=== PATIENT | female | born 1990 | race African-American/Black ===

== ENCOUNTER 2016-05-24 10:02 | Emergency (ER) | payer SELFPAY ==
[~2016-05-24] VITALS: Ht 157.5 cm; Wt 93.1 kg
[~2016-05-24 10:02] MED LIST: BACT800T5 PO; CEPH500C3 PO; IBUP800T23 PO
[2016-05-24 10:07] VITALS: BP 154/78; PULSE 84; RESP 16; TEMP 98.1; O2SAT 99
--- NOTE | 2016-05-24 10:41 | PD ---
HPI Chief Complaint: Lump, Cyst, Hernia Time Seen by Provider: 10:41 Travel History International Travel<30 days: No Contact w/Intl Traveler<30days: No Traveled to known affect area: No History of Present Illness HPI 25-year-old female with complaint of an abscess to her right armpit 4 days. History of abscesses to bilateral armpits. Denies fever, chills, nausea, vomiting. Denies paresthesias, loss of sensation, decreased range of motion, decreased strength to affected extremity. Has tried opening it up and draining at this morning but couldn't secondary to pain. Has tried warm compresses with no relief. Has not taken any medications or tried any other treatments to alleviate her symptoms. No known allergies. No other modifying factors or associated signs and symptoms. PFSH Past Medical History Hx Anticoagulant Therapy: No Cardiovascular Problems: No Chemotherapy: No Cerebrovascular Accident: No Diabetes: No Respiratory: No ?: Not LMP: MAY 2016 : 1 Para: 0 : 1 Social History Alcohol Use: Yes (SOCIAL) Tobacco Use: Yes (BLACK AND MILD 3-4 WEEKLY) Substance Use: No Allergies-Medications (Allergen,Severity, Reaction): Coded Allergies: No Known Allergies (Verified , 11/28/14) Reported Meds & Prescriptions Reported Meds & Active Scripts Active Ibuprofen 800 Mg Tab 800 Mg PO Q6HR PRN Bactrim DS (Sulfamethoxazole-Trimethoprim) 800-160 Mg Tab 1 Tab PO BID 10 Days Keflex (Cephalexin) 500 Mg Cap 500 Mg PO Q6H 10 Days Review of Systems Except as stated in HPI: all other systems reviewed are Neg Physical Exam Narrative GENERAL: Well-nourished, well-developed patient, in no acute distress; afebrile , nontoxic-appearing SKIN: There is an indurated area in the right arm. Which measures about 3 cm in diameter. It is fluctuant but there is no pointing or drainage. There is a zone of inflammation around it but no lymphangitis. HEAD: Atraumatic. Normocephalic. EYES: Pupils equal and round. No scleral icterus. No injection or drainage. ENT: Mucosa pink and moist. Airway patent. NECK: Trachea midline. CARDIOVASCULAR: Regular rate. RESPIRATORY: No accessory muscle use. GASTROINTESTINAL: Rounded. \MUSCULOSKELETAL: No obvious deformities. No clubbing. No cyanosis. No edema. NEUROLOGICAL: Awake and alert. Oriented 3. No obvious cranial nerve deficits. Motor grossly within normal limits. Normal speech. PSYCHIATRIC: Appropriate mood and affect; insight and judgment normal. Data Data Last Documented VS Vital Signs Date Time Temp Pulse Resp B/P Pulse Ox O2 Delivery O2 Flow Rate FiO2 05/24/16 10:07 98.1 84 16 154/78 99 Orders Wound Culture And Gram Stain (05/24/16 10:46) Ketorolac Inj (Toradol Inj) (05/24/16 11:00) [facility] Medical Decision Making Medical Screen Exam Complete: Yes Emergency Medical Condition: Yes Medical Record Reviewed: Yes Differential Diagnosis Abscess, folliculitis, hidradenitis Narrative Course 25-year-old female with an abscess to her right axilla. Patient is afebrile and nontoxic-appearing. See my procedure note for incision and drainage. Wound culture pending. Toradol administered in the ER. Keflex, Bactrim, ibuprofen prescribed for home. Patient is medically cleared and stable for discharge. Discussed reasons to return to the emergency department. Instructed patient to follow up with primary care provider. Patient agrees with treatment plan. The patients vital signs are stable and the patient is stable for outpatient follow-up and treatment. Patient discharged home, stable and in no acute distress. Procedures Procedure Narrative INCISION AND DRAINAGE OF ABSCESS: The area was prepped and was sterilely draped. Ethyl chloride was used to anesthetize the area. The area was properly anesthetized. A number 11 scalpel was used to make a 0.5-cm incision across the area of the abscess. Cultures were obtained. The abscess was drained an irrigated with normal saline. Sterile dressing applied. Diagnosis Primary Impression: Abscess of right axilla Referrals: Primary Care Physician Patient Instructions: Abscess (ED), Abscess Follow-up (ED), Abscess Incision and Drainage (ED), General Instructions Departure Forms: Tests/Procedures, Work Release Enter return to work date: May 25, 2016 Additional Instructions: Complete full course of antibiotics Warm compresses to the affected area Keep area clean and dry Ibuprofen or Tylenol as directed and as needed for pain and inflammation Follow-up with primary care provider Return to emergency department immediately with worsening of symptoms Med/Other Pt SpecificInfo: Prescription(s) given Scripts Ibuprofen 800 Mg [id number] Mg PO Q6HR PRN (PAIN) #30 TAB Ref 0 Prov:Erica Cowan 05/24/16 Sulfamethoxazole-Trimethoprim (Bactrim DS)800-160 Mg Tab1 Tab PO BID 10 Days Ref 0 Prov:Erica Cowan 05/24/16 Cephalexin (Keflex)500 Mg [id number] Mg PO Q6H 10 Days Ref 0 Prov:Erica Cowan 05/24/16 Disposition: 01 DISCHARGE HOME Condition: Stable Erica Cowan May 24, 2016 10:41
[2016-05-24] MEDS ORDERED: CEPH-460 PO (10:49)
[2016-05-24] MEDS ORDERED: IBUP800T23 PO (10:49)
[2016-05-24] MEDS ORDERED: BACT800T5 PO (10:49)
[2016-05-24] MEDS ORDERED: KETOROLAC TROMETHAMINE 60 MG/2 ML (IM) VIAL IM ONE (11:00)
== END 2016-05-24 12:22 | disposition home or self-care (01) ==
LOC: NED 10:02 → NEPB 12:22
DX: L02.411 Cutaneous abscess of right axilla (principal); B95.61 Methicillin susceptible Staphylococcus aureus infection as the cause of diseases classified elsewhere; Z72.0 Tobacco use
CPT/HCPCS: 10060; 86403; 87070; 87186; 96372; 99283; J1885; 87205

== ENCOUNTER 2016-08-02 13:36 | Emergency (ER) | payer SELFPAY ==
[~2016-08-02] VITALS: Ht 157.5 cm; Wt 93.0 kg
[~2016-08-02 13:36] MED LIST changes: +CEPH-460 PO; -CEPH500C3 PO
[2016-08-02 13:38] VITALS: BP 143/64; PULSE 74; RESP 15; TEMP 98.2; O2SAT 98
--- NOTE | 2016-08-02 13:46 | PD ---
Physical Exam Date Seen by Provider: Aug 02, 2016 Time Seen by Provider: 13:44 Narrative 25 y/o female presents with abscess under right axilla for the past week. No fever, chills, or drainage. Pain and swelling worsening. V/S stable. Med bed placement pending. Data Data Last Documented VS Vital Signs Date Time Temp Pulse Resp B/P Pulse Ox O2 Delivery O2 Flow Rate FiO2 08/02/16 13:38 98.2 74 15 143/64 98 MDM Medical Record Reviewed: Yes Supervised Visit with RACHAEL: Yes Condition: Stable Percy Garland Aug 02, 2016 13:46
--- NOTE | 2016-08-02 14:34 | PD ---
HPI . right axilla possible abscess Chief Complaint: Skin Problem Time Seen by Provider: 14:31 Travel History International Travel<30 days: No Contact w/Intl Traveler<30days: No Traveled to known affect area: No History of Present Illness HPI 25-year-old female with recurrent abscesses here with complaint of a possible right axilla abscess that started approximately 1 week ago. She had something similar in May and had incision and drainage along with antibiotics. She says that one went away and this is a new one. She admits to pain in the area. She does admit to shaving with razors. She denies any fever or chills and has no other complaints. She does not have a primary care provider. PFSH Past Medical History Hx Anticoagulant Therapy: No Cardiovascular Problems: No Chemotherapy: No Cerebrovascular Accident: No Diabetes: No Respiratory: No ?: Not LMP: 07/04/16 : 1 Para: 0 : 1 Social History Alcohol Use: Yes (SOCIAL) Tobacco Use: Yes (BLACK AND MILD 3-4 WEEKLY) Substance Use: No Allergies-Medications (Allergen,Severity, Reaction): Coded Allergies: No Known Allergies (Verified , 08/02/16) Reported Meds & Prescriptions Reported Meds & Active Scripts Active Ibuprofen 800 Mg Tab 800 Mg PO Q6HR PRN Bactrim DS (Sulfamethoxazole-Trimethoprim) 800-160 Mg Tab 1 Tab PO BID 10 Days Keflex (Cephalexin) 500 Mg Cap 500 Mg PO Q6H 10 Days Review of Systems General / Constitutional: No: Fever Eyes: No: Visual changes HENT: No: Headaches Cardiovascular: No: Chest Pain or Discomfort Respiratory: No: Shortness of Breath Gastrointestinal: No: Abdominal Pain Genitourinary: No: Dysuria Musculoskeletal: No: Pain Skin: Positive Other (right axilla swelling), No Rash Neurologic: No: Weakness Psychiatric: No: Depression Endocrine: No: Polydipsia Hematologic/Lymphatic: No: Easy Bruising Physical Exam Narrative GENERAL: AAO x 3, no acute distress, Well-nourished, well-developed patient. SKIN: Warm and dry. No visible rashes or bruising. Small 1 cm area of induration with some superficial swelling in the right axilla. No fluctuance. There is no definitive fluid collection or abscess. No erythema. No significant temperature variation. HEAD: Normocephalic and atraumatic. EYES: No scleral icterus. No injection or drainage. ENT: No nasal drainage noted. Mucous membranes pink. Airway patent. NECK: Supple, trachea midline. No JVD. CARDIOVASCULAR: Regular rate and rhythm without murmurs, gallops, or rubs. RESPIRATORY: Breath sounds equal bilaterally. No accessory muscle use. No rhonchi or rales. GASTROINTESTINAL: Visual inspection is normal EXTREMITIES: No cyanosis or edema. BACK: Nontender without obvious deformity. No CVA tenderness. PSYCH: AAO x 3, normal affect. Data Data Last Documented VS Vital Signs Date Time Temp Pulse Resp B/P Pulse Ox O2 Delivery O2 Flow Rate FiO2 08/02/16 13:38 98.2 74 15 143/64 98 MDM Medical Decision Making Medical Screen Exam Complete: Yes Emergency Medical Condition: Yes Medical Record Reviewed: Yes Differential Diagnosis folliculitis, cellulitis, less likely abscess Narrative Course 25-year-old female with recurrent abscesses here with complaint of a possible right axilla abscess that started approximately 1 week ago. She had something similar in May and had incision and drainage along with antibiotics. She says that one went away and this is a new one. She admits to pain in the area. She does admit to shaving with razors. She denies any fever or chills and has no other complaints. She does not have a primary care provider. Patient seen and examined. She appears to have a very mild folliculitis and cellulitis. There is no definitive abscess formation. There is nothing for me to drain. I've explained this to the patient and she seems a little bit upset. I've advised her that she will need to establish with a primary care provider as she could possibly have hidradenitis suppurativa. At this point I will go ahead and give her antibiotics to cover this mild infection. Ibuprofen for pain. I explained to her that this is related to shaving and she should find an alternative option. In the meantime she can try to use warm compress to see if the area forms to head. If it does, she can return for drainage. Diagnosis Primary Impression: Folliculitis Additional Impression: Cellulitis of axilla, right Patient Instructions: Cellulitis (ED), Folliculitis (ED), General Instructions Additional Instructions: Molt for worsening signs of infection which include fever, increased redness , increased warmth, purulent drainage, increased swelling or streaking. If any of these develop, please go to the nearest emergency room. You can try to use warm compresses to the area to see if a head develops. If it does, you can come back to the emergency department to have it drained. Please return to emergency department if your symptoms return or worsen. Follow up with your primary care provider. Take medications as prescribed. Use Tylenol or Motrin as needed for pain. Med/Other Pt SpecificInfo: Prescription(s) given Scripts Ibuprofen 800 Mg [id number] Mg PO Q6HR PRN (PAIN) #30 TAB Ref 0 Prov:Franklin Vanessa MD 08/02/16 Sulfamethoxazole-Trimethoprim (Bactrim DS)800-160 Mg Tab1 Tab PO BID 10 Days Ref 0 Prov:Franklin Vanessa MD 08/02/16 Cephalexin (Keflex)500 Mg [id number] Mg PO Q6H 10 Days Ref 0 Prov:Franklin Vanessa MD 08/02/16 Disposition: 01 DISCHARGE HOME Condition: Stable Betina Nair Aug 02, 2016 14:34
[2016-08-02] MEDS ORDERED: IBUP800T23 PO (14:35)
[2016-08-02] MEDS ORDERED: CEPH-460 PO (14:35)
[2016-08-02] MEDS ORDERED: BACT800T5 PO (14:35)
== END 2016-08-02 14:42 | disposition home or self-care (01) ==
LOC: NEPK 13:36
DX: L73.9 Follicular disorder, unspecified (principal); L03.111 Cellulitis of right axilla
CPT/HCPCS: 99283

== ENCOUNTER 2016-08-05 21:10 | Emergency (ER) | payer SELFPAY ==
[~2016-08-05] VITALS: Ht 157.5 cm; Wt 94.1 kg
[2016-08-05 21:21] VITALS: BP 145/99; PULSE 95; RESP 18; TEMP 100; O2SAT 99
[2016-08-05 21:35] VITALS: BP 145/99; PULSE 95; RESP 18; TEMP 100; O2SAT 99
[2016-08-05] MEDS ORDERED: LIDOCAINE 1%/EPINEPHrine 1:100,000 SOLN 20 ML VIAL INFIL ONE (22:00)
--- NOTE | 2016-08-05 22:09 | PD ---
HPI Chief Complaint: Skin Problem Time Seen by Provider: 21:48 Travel History International Travel<30 days: No Contact w/Intl Traveler<30days: No Traveled to known affect area: No History of Present Illness HPI The patient is a 25-year-old female with a history of recurrent hidradenitis suppurativa who comes in because she wants her abscess "lanced". She states she went to the [facility] 3 days ago but they would not drain it. She states that's the only way it gets better. They gave her prescriptions for Septra DS and doxycycline but she did not fill either prescription. PFSH Past Medical History Hx Anticoagulant Therapy: No Cardiovascular Problems: No Chemotherapy: No Cerebrovascular Accident: No Diabetes: No Respiratory: No Immunizations Current: Yes Tetanus Vaccination: < 5 Years Influenza Vaccination: Yes ?: Not LMP: 08-03-17 : 1 Para: 0 : 1 Social History Alcohol Use: No Tobacco Use: Yes (black and milds 2 a day) Substance Use: No Allergies-Medications (Allergen,Severity, Reaction): Coded Allergies: No Known Allergies (Verified , 08/05/16) Reported Meds & Prescriptions Reported Meds & Active Scripts Active Review of Systems Except as stated in HPI: all other systems reviewed are Neg Physical Exam Narrative GENERAL: Well-nourished, well-developed patient in moderate apparent distress with her hidradenitis suppurativa on the right. Her vital signs show blood pressure 145/99 with temperature 100.0 and heart rate of 95 and respirations 18 and oximetry 99%. SKIN: Focused skin assessment warm/dry. There is a hidradenitis suppurativa area of induration and what appears to be fluctuance a 4 x 3 cm area. At least one old scar from previous drainage is present on this axilla. HEAD: Normocephalic. EYES: No scleral icterus. No injection or drainage. NECK: Supple, trachea midline. No JVD or lymphadenopathy. CARDIOVASCULAR: Regular rate and rhythm without murmurs, gallops, or rubs. RESPIRATORY: Breath sounds equal bilaterally. No accessory muscle use. GASTROINTESTINAL: Abdomen soft, non-tender, nondistended. MUSCULOSKELETAL: No cyanosis, or edema. BACK: Nontender without obvious deformity. No CVA tenderness. Data Data Last Documented VS Vital Signs Date Time Temp Pulse Resp B/P Pulse Ox O2 Delivery O2 Flow Rate FiO2 08/05/16 21:35 100.0 95 18 145/99 99 MDM Medical Decision Making Medical Screen Exam Complete: Yes Emergency Medical Condition: Yes Medical Record Reviewed: Yes Differential Diagnosis Hidradenitis suppurativa, noncompliance to medications, non-hidradenitis abscess , loculated areas of sore glands Narrative Course The patient has hidradenitis suppurativa. Only a small amount of pus was recovered after incision and drainage. Procedures Procedure Narrative The area was prepped with Betadine. Under sterile technique a field block was done with lidocaine with epinephrine. A 1-1/2 cm incision was made. Only a small amount of pus was recovered, most of the area of swelling appears to be retained an enlarged sweat glands. Diagnosis Primary Impression: Hidradenitis suppurativa Additional Impressions: Cellulitis of axilla, right Encounter for incision and drainage procedure Additional Instructions: As we discussed, you need to get your antibiotics prescriptions filled. Both antibiotics are taken twice daily. Follow-up with your primary care physician about this. Med/Other Pt SpecificInfo: No Change to Meds Disposition: 01 DISCHARGE HOME Condition: Stable Yanick Silva MD August 05, 2016 22:09
[2016-08-05] MEDS ORDERED: SULFAMETHOXAZOLE-TRIMETHOPRIM DS 800-160 MG TAB PO ONE (22:15)
[2016-08-05] MEDS ORDERED: DOXYCYCLINE HYCLATE 100 MG CAP PO ONE (22:15)
[2016-08-05 22:17] VITALS: BP 140/96; TEMP 99.6
== END 2016-08-05 22:37 | disposition home or self-care (01) ==
LOC: PHED 21:10
DX: L03.111 Cellulitis of right axilla (principal); L73.2 Hidradenitis suppurativa; F17.290 Nicotine dependence, other tobacco product, uncomplicated
CPT/HCPCS: 10060

== ENCOUNTER 2016-08-10 06:07 | Emergency (ER) | payer SELFPAY ==
[2016-08-10 06:08] VITALS: BP 177/94; PULSE 134; RESP 22; TEMP 99.8; O2SAT 98
[2016-08-10 06:40] VITALS: BP 141/97; PULSE 112; RESP 18; O2SAT 98
[2016-08-10] MEDS ORDERED: CEPH-460 PO (06:40)
[2016-08-10] MEDS ORDERED: BACT800T5 PO (06:40)
[2016-08-10] MEDS ORDERED: LIDOCAINE HCL 1% 50 ML VIAL INFIL ONE (07:15)
[2016-08-10] MEDS ORDERED: MORPHINE SULFATE 8 MG/ML INJ IV PUSH ONE (07:15)
[2016-08-10 07:20] VITALS: BP 135/87; PULSE 96; RESP 16; O2SAT 99
--- NOTE | 2016-08-10 07:28 | PD ---
HPI Chief Complaint: Pain: Acute or Chronic Time Seen by Provider: 07:01 Travel History International Travel<30 days: No Contact w/Intl Traveler<30days: No Traveled to known affect area: No History of Present Illness HPI 25yo F with PMH of recurrent right axilla abscess presents to the ED with c/o worsening pain the right axilla. Pt was seen here 5 days ago and had I&D but pt states only blood came out. Pt states she has been compliant with antibiotics but it is larger. Pt has had this at least once a month for a few years and usually it drains on its own or she comes to get it drained. +Fever at home. Denies any chest pain, sob, n/v, abdominal pain, weakness or numbness. PFSH Past Medical History Medical History: Denies Significant Hx Hx Anticoagulant Therapy: No Cardiovascular Problems: No Chemotherapy: No Cerebrovascular Accident: No Diabetes: No Respiratory: No Immunizations Current: Yes Influenza Vaccination: Yes ?: Not : 1 Para: 0 : 1 Past Surgical History Surgical History: No Previous Surgery Social History Alcohol Use: Yes (social) Tobacco Use: Yes (black and milds 2 a day) Substance Use: No Allergies-Medications (Allergen,Severity, Reaction): Coded Allergies: No Known Allergies (Verified , 08/10/16) Reported Meds & Prescriptions Reported Meds & Active Scripts Active Acetaminophen Extra Strength (Acetaminophen) 500 Mg Cap 500 Mg PO Q6H PRN Reported Bactrim DS (Sulfamethoxazole-Trimethoprim) 800-160 Mg Tab 1 Tab PO BID Keflex (Cephalexin) 500 Mg Cap 500 Mg PO Q6H Review of Systems Except as stated in HPI: all other systems reviewed are Neg Physical Exam Narrative GENERAL: 25yo F in moderate distress. SKIN: +9cm by 6cm induration in right axilla with central fluctuance. Able to see fluid using the ultrasound. There is a 1.5cm scar from prior I&D 5 days ago. No packing. HEAD: Atraumatic. Normocephalic. CARDIOVASCULAR: Regular rate and rhythm. No murmur appreciated. RESPIRATORY: No accessory muscle use. Clear to auscultation. Breath sounds equal bilaterally. GASTROINTESTINAL: Abdomen soft, non-tender, nondistended. MUSCULOSKELETAL: No obvious deformities. No clubbing. No cyanosis. No edema. NEUROLOGICAL: Awake and alert. No obvious cranial nerve deficits. Motor grossly within normal limits. Normal speech. PSYCHIATRIC: Appropriate mood and affect; insight and judgment normal. Data Data Last Documented VS Vital Signs Date Time Temp Pulse Resp B/P Pulse Ox O2 Delivery O2 Flow Rate FiO2 08/10/16 09:10 90 16 123/77 98 Room Air 08/10/16 06:08 99.8 Orders Morphine Inj (Morphine Inj) (08/10/16 07:15) Lidocaine 1% Inj (50 Ml) (Xylocaine 1% I (08/10/16 07:15) Ed Poc Ultrasound (08/10/16 ) Morphine Inj (Morphine Inj) (08/10/16 07:30) MDM Medical Decision Making Medical Screen Exam Complete: Yes Emergency Medical Condition: Yes Differential Diagnosis Right axilla abscess Narrative Course 25yo F with recurrent right axilla abscess. Pt had I&D 5 days ago but no pus came out. On today's exam, I felt fluctuance and used an ultrasound and saw a large collection of fluid, likely pus. I initially was not able to drain when I incised area of most fluctuance by palpation but then used ultrasound guidance and was able to drain a large amount of purulent discharge. Pt was given morphine prior to I&D and felt much better after I&D. Pt still has bactrim and instructed pt to finish it and to return in 2 days for wound check and packing removal. Return precautions given. Procedures Procedure Narrative INCISION AND DRAINAGE OF ABSCESS: The area was prepped and was sterilely draped. A subcutaneous wheal of 1% Xylocaine with a total number 8mL was used to anesthetize the area properly. A number 11 scalpel was used to make a 1 -cm incision across the area of the abscess. I initially went for the area of most fluctuance but did not get any pus drainage. I tried again and also did not get any pus drainage. Then I used ultrasound guidance and made 0.5cm incision and copious amount of purulent discharge was drained. The abscess was drained, complex loculations were broken down, and irrigated with normal saline. Quarter inch iodoform packing was placed in the wound. Sterile dressing applied. Patient advised to have packing removed in two days. I closed the other 2 incisions with steri strip. Ultrasound of right abscess: Linear probe ultrasound use to locate area of abscess. Large collection of fluid visualized. Diagnosis Primary Impression: Abscess of right axilla Patient Instructions: General Instructions Departure Forms: Tests/Procedures Additional Instructions: Please return in 2 days for wound check and packing removal. Return earlier if symptoms worsen. Med/Other Pt SpecificInfo: Prescription(s) given Scripts Acetaminophen (Acetaminophen Extra Strength)500 Mg [id number] Mg PO Q6H PRN #20 CAP Ref 0 Prov:Bushra Leon DO 08/10/16 Disposition: 01 DISCHARGE HOME Condition: Stable Bushra Leon DO August 10, 2016 07:28
[2016-08-10] MEDS ORDERED: MORPHINE SULFATE 4 MG/ML INJ IV PUSH ONE (07:30)
[2016-08-10 09:10] VITALS: BP 123/77; PULSE 90; RESP 16; O2SAT 98
[2016-08-10] MEDS ORDERED: EXTR500C PO (09:25)
[2016-08-11] MEDS ORDERED: PERC5TAB12 PO ×2 (17:10→17:17)
== END 2016-08-10 09:57 | disposition home or self-care (01) ==
LOC: NEPC 06:07
DX: L02.411 Cutaneous abscess of right axilla (principal); Z72.0 Tobacco use
CPT/HCPCS: 10061; 96374; 99283; J2270

== ENCOUNTER 2016-08-11 12:53 | Emergency (ER) | payer SELFPAY ==
[~2016-08-11] VITALS: Ht 157.5 cm; Wt 94.0 kg
[~2016-08-11 12:53] MED LIST changes: +EXTR500C PO; -IBUP800T23 PO
[2016-08-11 12:55] VITALS: BP 142/62; PULSE 88; RESP 17; TEMP 98.4; O2SAT 99
--- NOTE | 2016-08-11 13:05 | PD ---
HPI . right axilla abscess Chief Complaint: Skin Problem Time Seen by Provider: 13:05 Travel History International Travel<30 days: No Contact w/Intl Traveler<30days: No Traveled to known affect area: No History of Present Illness HPI 25 yr old female here with c/o worsening right axilla abscess. She was seen several times for this abscess and had an attempted incision and drainage and only blood was released. She was then seen again and had another incision and drainage under ultrasound guidance and lots of purulent matter was expressed from the abscess. She is here telling me that the abscess is larger. She also admits to increased pain. She decided to come in because the area is getting bigger and she says the packing fell out. PFSH Past Medical History Hx Anticoagulant Therapy: No Cardiovascular Problems: No Chemotherapy: No Cerebrovascular Accident: No Diabetes: No Respiratory: No Immunizations Current: Yes ?: Not LMP: 08/03/16 : 1 Para: 0 : 1 Social History Alcohol Use: Yes (social) Tobacco Use: Yes (black and milds 2 a day) Substance Use: No Allergies-Medications (Allergen,Severity, Reaction): Coded Allergies: No Known Allergies (Verified , 08/11/16) Reported Meds & Prescriptions Reported Meds & Active Scripts Active Acetaminophen Extra Strength (Acetaminophen) 500 Mg Cap 500 Mg PO Q6H PRN Reported Bactrim DS (Sulfamethoxazole-Trimethoprim) 800-160 Mg Tab 1 Tab PO BID Keflex (Cephalexin) 500 Mg Cap 500 Mg PO Q6H Physical Exam Narrative GENERAL: AAO x 3, no acute distress, Well-nourished, well-developed patient. SKIN: Warm and dry. No visible rashes or bruising. Right axilla with a large lemon-sized abscess. There is significant induration and some fluctuance. very warm to touch HEAD: Normocephalic and atraumatic. EYES: No scleral icterus. No injection or drainage. ENT: No nasal drainage noted. Mucous membranes pink. Airway patent. NECK: Supple, trachea midline. No JVD. CARDIOVASCULAR: Regular rate and rhythm without murmurs, gallops, or rubs. RESPIRATORY: Breath sounds equal bilaterally. No accessory muscle use. No rhonchi or rales. GASTROINTESTINAL: Abdomen soft, non-tender, nondistended. EXTREMITIES: No cyanosis or edema. BACK: Nontender without obvious deformity. No CVA tenderness. PSYCH: AAO x 3, normal affect. Data Data Last Documented VS Vital Signs Date Time Temp Pulse Resp B/P Pulse Ox O2 Delivery O2 Flow Rate FiO2 08/11/16 12:55 98.4 88 17 142/62 99 Orders Wound Culture And Gram Stain (08/11/16 13:07) Lidocaine 1% Inj (50 Ml) (Xylocaine 1% I (08/11/16 13:15) MDM Medical Decision Making Medical Screen Exam Complete: Yes Emergency Medical Condition: Yes Medical Record Reviewed: Yes Differential Diagnosis axilla abscess, cellulitis, Narrative Course 25 yr old female here with c/o worsening right axilla abscess. She was seen several times for this abscess and had an attempted incision and drainage and only blood was released. She was then seen again and had another incision and drainage under ultrasound guidance and lots of purulent matter was expressed from the abscess. She is here telling me that the abscess is larger. She also admits to increased pain. She decided to come in because the area is getting bigger and she says the packing fell out. Patient seen and examined. I attempted I&D and once again only had blood expressed. Patient in some discomfort and would benefit from US guided I&D. med bed requested. 1446: wrapped area with clean gauze and offered pain medication: patient declined. 1626: discussed with Carina Timmons, who will disposition this patient. Procedures Procedure Narrative After the risks and benefits were discussed the following procedure was performed: INCISION AND DRAINAGE OF ABSCESS: The area was prepped and was sterilely draped. A subcutaneous wheal of 1 % Xylocaine with a total number 10 mL was used to anesthetize the area. The area was properly anesthetized. A number 11 scalpel was used to make a 1 -cm incision across the area of the abscess. Unfortunately only blood was expressed. She will need another ultrasound guided drainage. Condition: Stable Betina Nair August 11, 2016 13:05
[2016-08-11] MEDS ORDERED: LIDOCAINE HCL 1% 50 ML VIAL INFIL ONE (13:15)
[2016-08-11] MEDS ORDERED: PERC5TAB12 PO ×2 (17:10→17:17)
--- NOTE | 2016-08-11 17:19 | PD ---
Physical Exam Date Seen by Provider: August 11, 2016 Time Seen by Provider: 17:11 Narrative For full history and physical examination please see previous provider's note. I assumed care of patient when she was transferred to a medical bed due to an abscess in the right axillary area. Patient is afebrile, her vital signs are stable. The packing that was placed yesterday fell out. Patient reports pain has improved since the previous I&D yesterday. She is concerned that the area appears more swollen. Data Data Last Documented VS Vital Signs Date Time Temp Pulse Resp B/P Pulse Ox O2 Delivery O2 Flow Rate FiO2 08/11/16 12:55 98.4 88 17 142/62 99 Orders Wound Culture And Gram Stain (08/11/16 13:07) Lidocaine 1% Inj (50 Ml) (Xylocaine 1% I (08/11/16 13:15) MDM Medical Record Reviewed: Yes Supervised Visit with RACHAEL: No Interpretation(s) Vital Signs Date Time Temp Pulse Resp B/P Pulse Ox O2 Delivery O2 Flow Rate FiO2 08/11/16 12:55 98.4 88 17 142/62 99 Differential Diagnosis Hidradenitis versus abscess versus sebaceous cyst versus other Narrative Course Patient's 25-year-old female returning to emergency from for reevaluation of an abscess to her right axillary area. Please see procedure report for I&D. Patient tolerated procedure well, she is to continue Bactrim and doxycycline at home. She was advised to return to emergency department in 48 hours to have packing removed. She was advised to return sooner for any new or worsening symptoms. Additionally patient was advised to follow-up with a health information coder due to the chronicity of this issue. Patient verbalized understanding of instructions. Patient is stable for discharge. Procedures Procedure Narrative After the risks and benefits were discussed the following procedure was performed: INCISION AND DRAINAGE OF ABSCESS: The area was prepped and was sterilely draped. A subcutaneous wheal of 1 % Xylocaine with a total number 1 mL was used to anesthetize the area. The area was properly anesthetized. A number 11 scalpel was used to make a 1-cm incision across the area of the abscess. The abscess tunneled 2 inches deep posteriorly. The abscess was drained an irrigated with normal saline. Quarter inch iodoform packing was placed in the wound. Sterile dressing applied. Patient advised to have packing removed in two days. Diagnosis Primary Impression: Abscess of right axilla Additional Impression: Encounter for incision and drainage procedure Referrals: [facility] Patient Instructions: Abscess Follow-up (ED), Abscess Incision and Drainage (ED ), General Instructions Additional Instruction: Return to emergency department 48 hours to have packing removed, leave packing in place until that time. Return immediately for any new or worsening symptoms Complete full course of antibiotics as prescribed Do not drive or operate machinery while taking narcotic pain medication Med/Other Pt SpecificInfo: Prescription(s) given Scripts Oxycodone-Acetaminophen (Percocet)5-325 mg Tab1 Tab PO Q6H PRN (PAIN) #10 TAB Ref 0 Prov:Catrina Freeman DO 08/11/16 Disposition: 01 DISCHARGE HOME Condition: Stable Carina Timmons August 11, 2016 17:19
== END 2016-08-11 17:32 | disposition home or self-care (01) ==
LOC: NEPC 12:53
DX: L02.411 Cutaneous abscess of right axilla (principal); Z72.0 Tobacco use
CPT/HCPCS: 10061; 86403; 87070

== ENCOUNTER 2016-08-15 06:14 | Emergency (ER) | payer SELFPAY ==
[~2016-08-15] VITALS: Ht 157.5 cm; Wt 95.0 kg
[~2016-08-15 06:14] MED LIST changes: +PERC5TAB12 PO
[2016-08-15 06:16] VITALS: BP 142/95; PULSE 78; RESP 14; TEMP 98; O2SAT 97
--- NOTE | 2016-08-15 06:44 | PD ---
HPI Chief Complaint: Skin Problem Time Seen by Provider: 06:36 Travel History International Travel<30 days: No Contact w/Intl Traveler<30days: No Traveled to known affect area: No History of Present Illness HPI 25-year-old female is here for neuraxial abscess recheck. Patient was seen in the emergency room 4 days ago and had I&D of right axilla abscess. Packing was put in place. Patient has been taking Keflex and Bactrim DS as directed. Patient denies any fever chills. PFSH Past Medical History Hx Anticoagulant Therapy: No Cardiovascular Problems: No Chemotherapy: No Cerebrovascular Accident: No Diabetes: No Respiratory: No Immunizations Current: Yes ?: Not LMP: 08/03/16 : 1 Para: 0 : 1 Social History Alcohol Use: Yes (social) Tobacco Use: Yes (black and milds 2 a day) Substance Use: No Allergies-Medications (Allergen,Severity, Reaction): Coded Allergies: No Known Allergies (Verified , 08/15/16) Reported Meds & Prescriptions Reported Meds & Active Scripts Active Percocet (Oxycodone-Acetaminophen) 5-325 mg Tab 1 Tab PO Q6H PRN Acetaminophen Extra Strength (Acetaminophen) 500 Mg Cap 500 Mg PO Q6H PRN Reported Bactrim DS (Sulfamethoxazole-Trimethoprim) 800-160 Mg Tab 1 Tab PO BID Keflex (Cephalexin) 500 Mg Cap 500 Mg PO Q6H Review of Systems General / Constitutional: No: Fever Eyes: No: Visual changes HENT: No: Headaches Cardiovascular: No: Chest Pain or Discomfort Respiratory: No: Shortness of Breath Gastrointestinal: No: Abdominal Pain Genitourinary: No: Dysuria Musculoskeletal: No: Pain Skin: No Rash Neurologic: No: Weakness Psychiatric: No: Depression Endocrine: No: Polydipsia Hematologic/Lymphatic: No: Easy Bruising Physical Exam Narrative GENERAL: Well-nourished, well-developed patient. SKIN: Focused skin assessment warm/dry. HEAD: Normocephalic. EYES: No scleral icterus. No injection or drainage. NECK: Supple, trachea midline. No JVD or lymphadenopathy. CARDIOVASCULAR: Regular rate and rhythm without murmurs, gallops, or rubs. RESPIRATORY: Breath sounds equal bilaterally. No accessory muscle use. GASTROINTESTINAL: Abdomen soft, non-tender, nondistended. MUSCULOSKELETAL: No cyanosis, or edema. BACK: Nontender without obvious deformity. No CVA tenderness. Examination neuraxial shows soft tissue swelling with packing in place. Minimal drainage noted. Data Data Last Documented VS Vital Signs Date Time Temp Pulse Resp B/P Pulse Ox O2 Delivery O2 Flow Rate FiO2 08/15/16 06:16 98.0 78 14 142/95 97 Room Air MDM Medical Decision Making Medical Screen Exam Complete: Yes Emergency Medical Condition: Yes Medical Record Reviewed: Yes Differential Diagnosis Differential diagnosis including abscess, cellulitis. Narrative Course 25-year-old female for recheck right axilla abscess. Diagnosis Primary Impression: Abscess of right axilla Patient Instructions: General Instructions Additional Instructions: Continue wound care daily. Continue with antibiotics as directed. Follow-up with personal physician. Return if worse. Med/Other Pt SpecificInfo: No Change to Meds Disposition: 01 DISCHARGE HOME Condition: Stable Otoniel Marcelo MD August 15, 2016 06:44
== END 2016-08-15 07:01 | disposition home or self-care (01) ==
LOC: NEPC 06:14
DX: L02.411 Cutaneous abscess of right axilla (principal); Z72.0 Tobacco use
CPT/HCPCS: 99282